=== PATIENT | female | born 1975 | race Caucasian/White ===

== ENCOUNTER 2022-03-11 14:38 | Emergency (ER) | payer BC ==
[2022-03-11 17:00] LABS: CARBON DIOXIDE,CO2 24.8 mmol/L (21.0-32.0); POTASSIUM,K 3.9 mmol/L (3.5-5.1)
== END 2022-03-11 17:29 | disposition home or self-care (01) ==
LOC: MW.ED 14:38
DX: R07.89 Other chest pain (principal); R00.2 Palpitations; Z86.16 Personal history of COVID-19
CPT/HCPCS: 36415; 71045; 71045-26; 80053; 83690; 84443; 84484; 84703; 85025; 93005; 99285-25